=== PATIENT | male | born 1950 | race Caucasian/White ===

== ENCOUNTER 2020-09-08 19:51 | Inpatient (IN) | payer MEDICARE, OTHER ==
[~2020-09-08] VITALS: Ht 175.3 cm; Wt 77.1 kg
[~2020-09-08 19:51] MED LIST: ASPIR 8181 MG PO; ASPIRIN CHEWABL81 MG PO; ATORVASTATIN CA20 MG PO; BASAGLAR K100 UNIT/1 SQ; CLOPIDOGREL75 MG PO; COREG 25MG TAB25 MG PO; CYMBALTA60 MG PO; DESYREL 50 MG T50 MG PO; DEXILANT60 MG PO; FLONASE 0.05% N16 GM; HYDROCODON-ACE1 EAC6 PO; IMDUR ER TAB 3030 MG PO; KLONOPIN1 MG PO; MELOXICAM15 MG PO; NEURONTIN300 MG PO; NITROGLYCERIN0.4 MG SL; NORCO 10-325 T1 EACH PO; NORVASC10 MG PO; PANTOPRAZOLE SO40 MG PO; TAMSULOSIN HCL0.4 MG PO; TESTOSTERO200 MG/1 M IM; VITAMIN D21250 MCG PO; ZESTRIL 40 MG T40 MG PO
[2020-09-08 20:52] LABS: HEMOGLOBIN 14.4 gm/dl (14.0-17.5); RED BLOOD COUNT 4.66 M/UL (4.20-5.50); WHITE BLOOD COUNT 11.3 K/UL (4.5-11.0)
[2020-09-10 01:40] LABS: WHITE BLOOD COUNT 11.7 K/UL (4.5-11.0)
[2020-09-10 01:53] LABS: HEMOGLOBIN 12.3 gm/dl (14.0-17.5); RED BLOOD COUNT 4.05 M/UL (4.20-5.50)
[2020-09-10 02:01] LABS: BUN/CREATININE RATIO 16 (0-10)
[2020-09-10] MEDS ORDERED: BRILINTA 90 MG90 MG PO (15:22)
[2020-09-10] MEDS ORDERED: ATORVASTATIN CA20 MG PO (15:22)
[2020-09-10] MEDS ORDERED: ASPIRIN EC81 MG PO (15:22)
[2020-09-10] MEDS ORDERED: KLONOPIN TAB 00.5 MG PO ×2 (15:22→15:26)
[2020-09-10] MEDS ORDERED: NIFEDIPINE ER30 M1 PO (15:22)
[2020-09-10] MEDS ORDERED: LISINOPRIL40 MG PO (15:22)
== END 2020-09-10 16:45 | disposition home or self-care (01) | DRG 247 ==
LOC: ER1 19:51 → PROG CARE 21:27 → CDU 21:27 → PROG CARE 23:49
PROVIDERS: Internal Medicine Cardiovascular Disease; Physician Assistant Medical; ADMIT Internal Medicine
PROC: 027034Z Dilation of Coronary Artery, One Artery with Drug-eluting Intraluminal Device, Percutaneous Approach (ICD-10-PCS; principal; 2020-09-09)
PROC: 4A023N7 Measurement of Cardiac Sampling and Pressure, Left Heart, Percutaneous Approach (ICD-10-PCS; 2020-09-09)
PROC: B2111ZZ Fluoroscopy of Multiple Coronary Arteries using Low Osmolar Contrast (ICD-10-PCS; 2020-09-09)
PROC: B24BZZ4 Ultrasonography of Heart with Aorta, Transesophageal (ICD-10-PCS; 2020-09-09)
DX: I21.4 Non-ST elevation (NSTEMI) myocardial infarction (principal); I25.110 Atherosclerotic heart disease of native coronary artery with unstable angina pectoris; I10 Essential (primary) hypertension; E78.5 Hyperlipidemia, unspecified; E11.9 Type 2 diabetes mellitus without complications; Z20.822 Contact with and (suspected) exposure to COVID-19; Z96.7 Presence of other bone and tendon implants; G89.29 Other chronic pain; I27.20 Pulmonary hypertension, unspecified; I08.1 Rheumatic disorders of both mitral and tricuspid valves; G47.00 Insomnia, unspecified; F41.1 Generalized anxiety disorder; F17.210 Nicotine dependence, cigarettes, uncomplicated; Z91.14 Patient's other noncompliance with medication regimen; Z79.4 Long term (current) use of insulin; Z90.49 Acquired absence of other specified parts of digestive tract; Z82.49 Family history of ischemic heart disease and other diseases of the circulatory system; Z79.82 Long term (current) use of aspirin; Z82.3 Family history of stroke; Z88.0 Allergy status to penicillin
CPT/HCPCS: ECHO; 36415; 71045; 71275; 80048; 80053; 80061; 82550; 82553; 82962; 83036; 83874; 83880; 84484; 85025; 85347; 85379; 85610; 85730; 93005; 93306; 96374; 96375; 99152; 99153; 99285; C1725; C1769; C1874; C1887; C1894; C9600; J0360; J1644; J2250; J2270; J2405; J3010; J3246; J7030; J7040; Q9965; Q9967; U0002

== ENCOUNTER 2021-04-28 17:41 | Inpatient (IN) | payer MEDICARE, OTHER ==
[~2021-04-28] VITALS: Ht 175.3 cm; Wt 75.8 kg
[~2021-04-28 17:41] MED LIST changes: +ASPIRIN EC81 MG PO; +BRILINTA 90 MG90 MG PO; +KLONOPIN TAB 00.5 MG PO; +LISINOPRIL40 MG PO; +NIFEDIPINE ER30 M1 PO
[2021-04-28 18:38] LABS: HEMOGLOBIN 13.9 gm/dl (14.0-17.5); RED BLOOD COUNT 4.42 M/UL (4.20-5.50); WHITE BLOOD COUNT 12.2 K/UL (4.5-11.0)
[2021-04-28 19:02] LABS: BUN/CREATININE RATIO 13 (0-10)
[2021-04-28] MEDS ORDERED: NIFEDIPINE ER90 M1 PO (22:49)
[2021-04-28] MEDS ORDERED: PLAVIX75 MG PO (22:50)
[2021-04-28] MEDS ORDERED: PROTONIX 40 MG40 M1 PO (22:51)
[2021-04-28] MEDS ORDERED: TESTOSTERO200 MG/1 M IM (22:56)
--- NOTE | 2021-04-29 01:15 | NUR ---
PATIENT TRANSPORTED TO CT FOR STAT CTA OF CHEST.
--- NOTE | 2021-04-29 10:53 | NUR ---
0710: UNABLE TO DOCUMENT UNDER CARDIOVASCULAR TAB, RN COMPLETED UNDER PLAN OF CARE IN ERROR. YESICA DESAI WITH INFORMATICS UNABLE TO CORRECT. PATIENT IS ON TELE, NOTED TO BE IN NSR SR 60'S 70'S. GOOD PULSES NOTED, DENIES ANY C/O CHEST PAIN OR DISCOMFORT AT THIS TIME.
--- NOTE | 2021-04-29 19:44 | NUR ---
STARTED PROCESS TO RELEASE AIR FROM TR BAND. PT ALERT AND ORIENTED AND DENIES ANY PAIN OR BLEEDING. SITE IS DRY AND CLEAN NO HEMATOMA.
[2021-04-30 04:07] LABS: HEMOGLOBIN 12.1 gm/dl (14.0-17.5); WHITE BLOOD COUNT 12.4 K/UL (4.5-11.0)
[2021-04-30 04:11] LABS: RED BLOOD COUNT 3.94 M/UL (4.20-5.50)
[2021-04-30] MEDS ORDERED: REPATHA SY140 MG/1 M SQ (13:33)
[2021-04-30] MEDS ORDERED: CLOPIDOGREL75 MG PO (13:33)
[2021-04-30] MEDS ORDERED: LISINOPRIL10 MG PO (13:33)
--- NOTE | 2021-04-30 14:36 | NUR ---
PATIENT STATES THAT HE WILL BE DRIVING HIMSELF WHEN DISCHARGED. PATIENT EDUCATED ON RISKS OF DRIVING AFTER HEART CATH THE DAY BEFORE AND STATES HE WILL DRIVE HIMSELF HOME, HE HAS DONE THIS AFTER OTHER CATHS AND WILL BE FINE.
== END 2021-04-30 14:51 | disposition home or self-care (01) | DRG 247 ==
LOC: ER1 17:41 → M/S 20:31 → CDU 20:31 → M/S 22:33 → PROG CARE 04-29 17:44
PROVIDERS: Physician Assistant; ADMIT Internal Medicine
PROC: 027034Z Dilation of Coronary Artery, One Artery with Drug-eluting Intraluminal Device, Percutaneous Approach (ICD-10-PCS; principal; 2021-04-29)
PROC: B2111ZZ Fluoroscopy of Multiple Coronary Arteries using Low Osmolar Contrast (ICD-10-PCS; 2021-04-29)
PROC: B24BZZZ Ultrasonography of Heart with Aorta (ICD-10-PCS; 2021-04-29)
DX: I21.4 Non-ST elevation (NSTEMI) myocardial infarction (principal); I25.10 Atherosclerotic heart disease of native coronary artery without angina pectoris; E11.9 Type 2 diabetes mellitus without complications; Z20.822 Contact with and (suspected) exposure to COVID-19; F41.9 Anxiety disorder, unspecified; I08.1 Rheumatic disorders of both mitral and tricuspid valves; I10 Essential (primary) hypertension; I45.10 Unspecified right bundle-branch block; F17.220 Nicotine dependence, chewing tobacco, uncomplicated; E78.5 Hyperlipidemia, unspecified; Z79.4 Long term (current) use of insulin; Z90.49 Acquired absence of other specified parts of digestive tract; Z95.5 Presence of coronary angioplasty implant and graft; Z82.3 Family history of stroke; Z88.0 Allergy status to penicillin; Z87.81 Personal history of (healed) traumatic fracture; Z79.82 Long term (current) use of aspirin
CPT/HCPCS: ECHO; 36415; 71045; 71275; 80053; 82550; 82553; 82962; 83874; 84484; 85025; 85347; 85379; 85610; 85730; 93005; 93306; 99152; 99153; 99285; C1725; C1769; C1874; C1887; C1894; C9600; J0461; J1644; J2250; J2405; J3010; Q9965; Q9967; U0002

== ENCOUNTER → 2021-05-21 | Outpatient (CLI) | payer MEDICARE, OTHER ==
[~2021-05-21] MED LIST changes: +LISINOPRIL10 MG PO; +NIFEDIPINE ER90 M1 PO; +PLAVIX75 MG PO; +PROTONIX 40 MG40 M1 PO; +REPATHA SY140 MG/1 M SQ
== END ==
LOC: EMI 16:00
DX: R41.3 Other amnesia (principal); R94.02 Abnormal brain scan
CPT/HCPCS: 70551

== ENCOUNTER 2021-07-19 15:01 | Inpatient (IN) | payer MEDICARE, OTHER ==
[~2021-07-19] VITALS: Ht 175.3 cm; Wt 77.1 kg
[2021-07-19 16:33] LABS: HEMOGLOBIN 11.1 gm/dl (14.0-17.5); RED BLOOD COUNT 3.89 M/UL (4.20-5.50); WHITE BLOOD COUNT 9.3 K/UL (4.5-11.0)
[2021-07-19] MEDS ORDERED: PLAVIX75 MG PO (23:37)
[2021-07-19] MEDS ORDERED: VISTARIL25 MG PO (23:42)
[2021-07-20 03:34] LABS: WHITE BLOOD COUNT 10.3 K/UL (4.5-11.0)
[2021-07-20 03:35] LABS: RED BLOOD COUNT 3.41 M/UL (4.20-5.50)
--- NOTE | 2021-07-21 10:37 | NUR ---
PATIENT COMPLAINED ABOUT THE MORPHINE HE GOT LAST NIGHT, SAID IT CAUSED HIM CHEST AND BACK PAIN AND NAUSEA, AND HE 'HADN'T FELT RIGHT SINCE'. HE SAID HE DID NOT NOTIFY THE NURSE OF THE ISSUE AND JUST WAITED UNTIL HE FELL ASLEEP, BUT HE WANTED ME TO KNOW ABOUT IT AND WANTS THE DOCTOR TO KNOW ABOUT IT. STATED HE WOULD TELL THE DOCTOR ABOUT IT WHEN THEY CAME. HE HAS REPEATED THIS STORY 5-6 TIMES THIS AM, AND SEEMS VERY ANXIOUS. HE HAD HIS DAUGHTER SPEAK TO ANOTHER RN ON THE PHONE AND SHE EXPRESSED CONCERN ABOUT THE MORPHINE WELL. WE TOLD THEM BOTH THAT WE WOULD LIST THE MORPHINE AN ALLERGY AND HE WOULD NOT GET IT AGAIN, AND THAT SEEMED TO EASE HIS ANXIETY. HE SEEMS FEARFUL OF DISCHARGE AND ASKED ME IF HE COULD STAY TO GET THE 'CLOG' IN HIS NECK FIXED BEFORE HE WENT HOME. I TOLD HIM THAT THE DOCTORS WOULD DECIDE AND THEY WOULD TALK TO HIM WHEN THEY CAME IN TODAY.
[2021-07-21] MEDS ORDERED: ASPIRIN EC81 MG PO (15:54)
[2021-07-21] MEDS ORDERED: NIFEDIPINE ER60 M1 PO (15:54)
[2021-07-21] MEDS ORDERED: LOPRESSOR 25 MG25 MG PO (15:54)
[2021-07-21] MEDS ORDERED: ISOSORBIDE MONO60 MG PO (15:54)
== END 2021-07-21 17:29 | disposition home or self-care (01) | DRG 281 ==
LOC: ER1 15:01 → CDU 20:09 → MED SURG 4 20:09
PROVIDERS: Emergency Medicine; ADMIT Internal Medicine
PROC: B24BZZZ Ultrasonography of Heart with Aorta (ICD-10-PCS; principal; 2021-07-20)
DX: I21.4 Non-ST elevation (NSTEMI) myocardial infarction (principal); N17.9 Acute kidney failure, unspecified; I25.10 Atherosclerotic heart disease of native coronary artery without angina pectoris; I10 Essential (primary) hypertension; Z20.822 Contact with and (suspected) exposure to COVID-19; Z96.698 Presence of other orthopedic joint implants; D63.1 Anemia in chronic kidney disease; E78.5 Hyperlipidemia, unspecified; E11.9 Type 2 diabetes mellitus without complications; F17.220 Nicotine dependence, chewing tobacco, uncomplicated; I08.3 Combined rheumatic disorders of mitral, aortic and tricuspid valves; Z95.5 Presence of coronary angioplasty implant and graft; Z91.14 Patient's other noncompliance with medication regimen; Z79.4 Long term (current) use of insulin; Z79.01 Long term (current) use of anticoagulants; Z79.82 Long term (current) use of aspirin; Z90.49 Acquired absence of other specified parts of digestive tract; Z98.890 Other specified postprocedural states; Z88.0 Allergy status to penicillin; Z82.3 Family history of stroke; Z82.49 Family history of ischemic heart disease and other diseases of the circulatory system; Z88.8 Allergy status to other drugs, medicaments and biological substances
CPT/HCPCS: ECHO; 36415; 71045; 80048; 80053; 80061; 81001; 82962; 83036; 83605; 83735; 84100; 84439; 84443; 84484; 85025; 85610; 85730; 87040; 87070; 87086; 87205; 93005; 93306; 96374; 96375; 99285; J1644; J2270; J2405; Q0177

== ENCOUNTER → 2021-08-20 | Outpatient (CLI) | payer MEDICARE, OTHER ==
[~2021-08-20] MED LIST changes: +ISOSORBIDE MONO60 MG PO; +LOPRESSOR 25 MG25 MG PO; +NIFEDIPINE ER60 M1 PO; +VISTARIL25 MG PO
== END ==
LOC: HEART 5 08:45
DX: I25.10 Atherosclerotic heart disease of native coronary artery without angina pectoris (principal); E78.00 Pure hypercholesterolemia, unspecified
CPT/HCPCS: 78452; A9502; J2785

== ENCOUNTER 2021-12-29 19:58 | Inpatient (IN) | payer MEDICARE, OTHER ==
[~2021-12-29] VITALS: Ht 175.3 cm; Wt 76.3 kg
[2021-12-29 21:47] LABS: HEMOGLOBIN 13.1 gm/dl (14.0-17.5); RED BLOOD COUNT 4.37 M/UL (4.20-5.50); WHITE BLOOD COUNT 9.3 K/UL (4.5-11.0)
[2021-12-30 04:36] LABS: HEMOGLOBIN 13.1 gm/dl (14.0-17.5); RED BLOOD COUNT 4.41 M/UL (4.20-5.50); WHITE BLOOD COUNT 11.2 K/UL (4.5-11.0)
[2021-12-30] MEDS ORDERED: REPATHA SY140 MG/1 M SQ (10:06)
[2021-12-30] MEDS ORDERED: BUSPIRONE HCL5 MG PO (10:07)
[2021-12-30] MEDS ORDERED: CITALOPRAM HBR20 MG PO (10:08)
[2021-12-30] MEDS ORDERED: KLONOPIN0.5 MG PO (10:09)
[2021-12-30] MEDS ORDERED: LEVEMIR FL100 UNIT/1 SQ (10:10)
[2021-12-30] MEDS ORDERED: TRAZODONE HCL50 MG PO (10:14)
[2021-12-30] MEDS ORDERED: PROCARDIA XL60 MG PO (10:26)
[2021-12-31 02:19] LABS: HEMOGLOBIN 11.7 gm/dl (14.0-17.5); WHITE BLOOD COUNT 8.4 K/UL (4.5-11.0)
[2021-12-31 02:20] LABS: RED BLOOD COUNT 3.9 M/UL (4.20-5.50)
[2022-01-01 07:22] LABS: HEMOGLOBIN 11.3 gm/dl (14.0-17.5); RED BLOOD COUNT 3.85 M/UL (4.20-5.50); WHITE BLOOD COUNT 9.2 K/UL (4.5-11.0)
[2022-01-01 13:14] LABS: CREATININE, URINE 198.5 mg/dL (Not Estab.)
[2022-01-01] MEDS ORDERED: ASPIRIN EC81 MG PO (16:48)
[2022-01-01] MEDS ORDERED: HYDRALAZINE HCL25 MG PO (16:48)
[2022-01-01] MEDS ORDERED: LIPITOR40 MG PO (16:48)
[2022-01-01] MEDS ORDERED: PHENERGAN 25 MG25 M1 PO (19:19)
[2022-01-01] MEDS ORDERED: DOCUSATE SODIU100 MG PO (19:19)
[2022-01-01] MEDS ORDERED: LOPRESSOR 25 MG25 MG PO (19:19)
[2022-01-01] MEDS ORDERED: POLYETHYLENE GL17 GM PO (19:19)
[2022-01-01] MEDS ORDERED: PROTONIX 40 MG40 M1 PO (19:41)
[2022-01-02 07:11] LABS: COMPLEMENT C3, SERUM 110 mg/dL (82-167); COMPLEMENT C4, SERUM 24 mg/dL (12-38); HBSAG SCREEN Negative (Negative); HCV AB <0.1 (0.0-0.9); HEP A AB, IGM Negative (Negative); HEP B CORE AB, IGM Negative (Negative)
[2022-01-02 10:15] LABS: CREATININE, URINE 88.2 mg/dL (Not Estab.)
[2022-01-02 12:14] LABS: ANTI-DSDNA ANTIBODIES 12 IU/mL (0-9)
[2022-01-02 15:11] LABS: A/G RATIO 1.6 (0.7-1.7); ALPHA-1-GLOBULIN 0.2 g/dL (0.0-0.4); ALPHA-2-GLOBULIN 0.6 g/dL (0.4-1.0); BETA GLOBULIN 0.8 g/dL (0.7-1.3); GAMMA GLOBULIN 0.4 g/dL (0.4-1.8); IMMUNOGLOBULIN A, QN, SERUM 234 mg/dL (61-437); IMMUNOGLOBULIN G, QN, SERUM 610 mg/dL (603-1613); IMMUNOGLOBULIN M, QN, SERUM 62 mg/dL (15-143); M-SPIKE Not Observed g/dL (Not Observed)
[2022-01-02 20:12] LABS: ANTIMYELOPEROXIDASE (MPO) ABS <0.2 units (0.0-0.9); ANTIPROTEINASE 3 (PR-3) ABS <0.2 units (0.0-0.9); ATYPICAL PANCA <1:20 titer (Neg:<1:20); CYTOPLASMIC (C-ANCA) <1:20 titer (Neg:<1:20); PERINUCLEAR (P-ANCA) <1:20 titer (Neg:<1:20)
== END 2022-01-01 21:50 | disposition home or self-care (01) | DRG 684 ==
LOC: ER1 19:58 → PROG CARE 23:07 → CDU 23:07 → PROG CARE 12-30 05:15 → MED SURG 4 12-31 18:15
PROVIDERS: Internal Medicine; Internal Medicine Nephrology; Physician Assistant; ADMIT Internal Medicine
DX: N17.9 Acute kidney failure, unspecified (principal); I25.10 Atherosclerotic heart disease of native coronary artery without angina pectoris; Z20.822 Contact with and (suspected) exposure to COVID-19; R07.89 Other chest pain; I12.9 Hypertensive chronic kidney disease with stage 1 through stage 4 chronic kidney disease, or unspecified chronic kidney disease; N18.32 Chronic kidney disease, stage 3b; Z96.698 Presence of other orthopedic joint implants; E78.5 Hyperlipidemia, unspecified; F32.A Depression, unspecified; E11.51 Type 2 diabetes mellitus with diabetic peripheral angiopathy without gangrene; R20.0 Anesthesia of skin; E11.22 Type 2 diabetes mellitus with diabetic chronic kidney disease; F17.220 Nicotine dependence, chewing tobacco, uncomplicated; Z79.4 Long term (current) use of insulin; Z95.5 Presence of coronary angioplasty implant and graft; Z90.49 Acquired absence of other specified parts of digestive tract; Z98.890 Other specified postprocedural states; Z88.0 Allergy status to penicillin; Z82.3 Family history of stroke; Z82.49 Family history of ischemic heart disease and other diseases of the circulatory system; Z88.8 Allergy status to other drugs, medicaments and biological substances; Z88.6 Allergy status to analgesic agent; I25.2 Old myocardial infarction
CPT/HCPCS: 36415; 70496; 70498; 70551; 71045; 80048; 80053; 80074; 81001; 82043; 82533; 82550; 82553; 82565; 82570; 82607; 82784; 82962; 83520; 83880; 84155; 84156; 84165; 84439; 84443; 84484; 85025; 85027; 85610; 85730; 86038; 86160; 86225; 86256; 86334; 93005; 96372; 96374; 99285; G0378; J1644; J2405; Q0177; Q9967